=== PATIENT | male | born 1960 | race Caucasian/White ===

== ENCOUNTER → 2022-02-14 | Outpatient (RCR) | payer OTHER | LOC: CR 10:36 | DX: Z29.8 Encounter for other specified prophylactic measures (principal); I50.42 Chronic combined systolic (congestive) and diastolic (congestive) heart failure | CPT/HCPCS: 93798 ==

== ENCOUNTER → 2022-03-16 | Outpatient (RCR) | payer OTHER | END | disposition home or self-care (01) | LOC: CR 02-16 14:01 | PROVIDERS: ATTEND Internal Medicine Cardiovascular Disease | DX: Z29.8 Encounter for other specified prophylactic measures (principal); I50.42 Chronic combined systolic (congestive) and diastolic (congestive) heart failure | CPT/HCPCS: 93798 ==

== ENCOUNTER → 2022-04-16 | Outpatient (RCR) | payer OTHER | END | disposition home or self-care (01) | LOC: CR 03-19 07:16 | DX: Z29.8 Encounter for other specified prophylactic measures (principal); I50.42 Chronic combined systolic (congestive) and diastolic (congestive) heart failure | CPT/HCPCS: 93798 ==

== ENCOUNTER 2022-05-02 11:03 | Outpatient (RCR) | payer OTHER | END 2022-05-16 | disposition home or self-care (01) | LOC: CR 11:03 | DX: Z29.8 Encounter for other specified prophylactic measures (principal); I50.42 Chronic combined systolic (congestive) and diastolic (congestive) heart failure | CPT/HCPCS: 93798 ==

== ENCOUNTER 2023-04-15 11:26 | Outpatient (RCR) | payer OTHER | END 2023-04-16 | disposition home or self-care (01) | LOC: CR 11:26 | PROVIDERS: ATTEND Internal Medicine Cardiovascular Disease | DX: Z94.1 Heart transplant status (principal) | CPT/HCPCS: 93798 ==

== ENCOUNTER 2023-05-15 11:23 | Outpatient (RCR) | payer OTHER | END 2023-05-16 | disposition home or self-care (01) | LOC: CR 11:23 | PROVIDERS: ATTEND Internal Medicine Cardiovascular Disease | DX: Z29.89 Encounter for other specified prophylactic measures (principal); Z94.1 Heart transplant status | CPT/HCPCS: 93798 ==